=== PATIENT | female | born 2005 | race Caucasian/White ===

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

== ENCOUNTER 2023-06-10 19:08 | Emergency (ER) | payer OTHER ==
[2023-06-10 19:18] VITALS: TEMP 99.9
[2023-06-10 20:01] LABS: Amorphous Sediment,Urine Rare /hpf; Appearance,Urine Cloudy (Clear); Bacteria,Urine Occasional /hpf; Bilirubin,Urine Negative (Negative); Blood,Urine Negative (Negative); Color,Urine Light Yellow; Glucose,Urine (UA) Negative (Negative); Ketones,Urine Negative (Negative); Leukocyte Esterase,Urine Negative (Negative); Mucus,Urine Rare /hpf; Nitrite,Urine Negative (Negative); PH, Urine 7.5 (5.0-8.0); Protein,Urine Negative (Negative); RBC,Urine 2 /hpf (0-5); Specific Gravity,Urine 1.019 (1.001-1.035); Squamous Epithelial Cell,Urine 6 /hpf (0-4); Urobilinogen,Urine <2.0 mg/dL (<2.0); WBC,Urine 4 /hpf (0-5)
--- NOTE | 2023-06-10 20:11 | ED ---
Back Pain HPI - General Chief Complaint: Back Pain/Injury Stated Complaint: back pain Time Seen by Provider: 06/10/23 19:22 Source: patient, RN notes reviewed, old records reviewed Limitations: no limitations - History of Present Illness Initial Comments: This is a to the emergency department for evaluation today. Patient presents today for evaluation regards to severe back pain right-sided flank pain patient has had lumbar fracture in the past but this pain is significantly did she lose her no modifying factors for symptoms. No dysuria no diarrhea no blood in the urine no abdominal pain patient denies chance of MD Complaint: back pain -: hour(s) Similar Symptoms Previously: Yes Place: home Radiation: none Severity: severe Severity scale (1-10): 8 Quality: sharp Consistency: constant Improves With: none Worsens With: none Associated Symptoms: denies other symptoms Treatments Prior to Arrival: other (0) - Related Data Home Medications Medication Instructions Recorded Confirmed Ibuprofen [Advil] 400 mg PO Q8HR PRN 01/14/20 01/14/20 Marlissa-28 1 tab PO HS 01/14/20 01/14/20 Sulfamethox-Tmp 800-160Mg [Bactrim 1 tab PO Q12HR 01/14/20 01/14/20 DS 800-160 mg] Previous Rx's Medication Instructions Recorded Acetaminophen Tab [Tylenol] 650 mg PO Q4H PRN #0 01/15/20 Ciprofloxacin HCl [Cipro] 500 mg PO Q12HR #20 tablet 06/10/23 Doxycycline [Vibramycin] 100 mg PO BID 7 Days #14 capsule 06/12/23 metroNIDAZOLE [Flagyl] 500 mg PO BID 7 Days #14 tab 06/12/23 Allergies Allergy/AdvReac Type Severity Reaction Status Date / Time Penicillins Allergy Intermediate Rash/Hives Verified 06/12/23 12:46 Review of Systems ROS Statement: Those systems with pertinent positive or pertinent negative responses have been documented in the HPI. ROS Other: All systems not noted in ROS Statement are negative. Past Medical History Additional Past Medical History / Comment(s): UTI Aug 2019 History of Any Multi-Drug Resistant Organisms: None Reported Past Surgical History: No Surgical Hx Reported Additional Past Anesthesia/Blood Transfusion Reaction / Comment(s): no surgeries Past Psychological History: No Psychological Hx Reported Smoking Status: Never smoker Past Alcohol Use History: None Reported Past Drug Use History: None Reported - Past Family History Mother Family Medical History: No Reported History Father Family Medical History: No Reported History General Exam Limitations: no limitations General appearance: alert, in no apparent distress Head exam: Present: atraumatic, normocephalic, normal inspection Eye exam: Present: normal appearance, PERRL, EOMI. Absent: scleral icterus, conjunctival injection, periorbital swelling ENT exam: Present: normal exam, mucous membranes moist Neck exam: Present: normal inspection. Absent: tenderness, meningismus, lymphadenopathy Respiratory exam: Present: normal lung sounds bilaterally. Absent: respiratory distress, wheezes, rales, rhonchi, stridor Cardiovascular Exam: Present: regular rate, normal rhythm, normal heart sounds. Absent: systolic murmur, diastolic murmur, rubs, gallop, clicks GI/Abdominal exam: Present: soft, normal bowel sounds. Absent: distended, tenderness, guarding, rebound, rigid Extremities exam: Present: normal inspection, full ROM, normal capillary refill. Absent: tenderness, pedal edema, joint swelling, calf tenderness Back exam: Present: normal inspection Neurological exam: Present: alert, oriented X3, CN II-XII intact Psychiatric exam: Present: normal affect, normal mood Skin exam: Present: warm, dry, intact, normal color. Absent: rash Course Vital Signs 06/10/23 06/10/23 19:15 21:52 Temperature 99.9 F H Pulse Rate 102 H 80 Respiratory 16 17 Rate Blood Pressure 127/57 109/71 O2 Sat by Pulse 100 100 Oximetry - Reevaluation(s) Reevaluation #1: 06/10/23 20:11 Medical record is reviewed Reevaluation #2: Patient symptoms are improved Reevaluation #3: Patient informed results questions answered Reevaluation #4: 06/10/23 20:11 Was pt. sent in by a medical professional or institution (, PA, RIGHT OF WAY MANAGER, urgent care, hospital, or residential...) When possible be specific @ -no Did you speak to anyone other than the patient for history (EMS, parent, family, police, friend...)? What history was obtained from this source @ -no Did you review nursing and triage notes (agree or disagree)? Why? @ -agree Are old charts reviewed (outside hosp., previous admission, EMS record, old EKG, old radiological studies, urgent care reports/EKG's, residential records)? Report findings @ -yes Differential Diagnosis (chest pain, altered mental status, abdominal pain women, abdominal pain men, vaginal bleeding, weakness, fever, dyspnea, syncope, headache, dizziness, GI bleed, back pain, seizure, CVA, palpatations, mental health, musculoskeletal)? @ -prior EKG interpreted by me (3pts min.). @ -no X-rays interpreted by me (1pt min.). @ -no CT interpreted by me (1pt min.). @ -yes U/S interpreted by me (1pt. min.). @ -no What testing was considered but not performed or refused? (CT, X-rays, U/S, labs)? Why? @ -none What meds were considered but not given or refused? Why? @ -none Did you discuss the management of the patient with other professionals (professionals i.e. , PA, RIGHT OF WAY MANAGER, lab, RT, psych nurse, bilingual social worker, feather baler, teacher, protection officer, caseworker protective services)? Give summary @ -no Was smoking cessation discussed for >3mins.? @ -no Was critical care preformed (if so, how long)? @ -no Were there social determinants of health that impacted care today? How? (Homelessness, low income, unemployed, alcoholism, drug addiction, transportation, low edu. Level, literacy, decrease access to med. care, fpc, rehab)? @ -none Was there de-escalation of care discussed even if they declined (Discuss DNR or withdrawal of care, Hospice)? DNR status @ -no What co-morbidities impacted this encounter? (DM, HTN, Smoking, COPD, CAD, Cancer, CVA, ARF, Chemo, Hep., AIDS, mental health diagnosis, sleep apnea, morbid obesity)? @ -none Was patient admitted / discharged? Hospital course, mention meds given and route, prescriptions, significant lab abnormalities, going to OR and other pertinent info. @ - 18 female to the emergency room today with Nonspecific back pain history of back fracture. Patient has normal computed tomography scan here in the ER pain is improved possible urinary tract infection we'll choose antibiotics and can be discharged home Discharge Undiagnosed new problem with uncertain prognosis? @ -no Drug Therapy requiring intensive monitoring for toxicity (Heparin, Nitro, Insulin, Cardizem)? @ -no Were any procedures done? @ -no Diagnosis/symptom? @ -Acute on chronic back pain, UTI cystitis Acute, or Chronic, or Acute on Chronic? @ -Acute Uncomplicated (without systemic symptoms) or Complicated (systemic symptoms)? @ -Complicated Side effects of treatment? @ -no Exacerbation, Progression, or Severe Exacerbation? @ -exacerbation Poses a threat to life or bodily function? How? (Chest pain, [place], MA, pneumonia, PE, COPD, DKA, ARF, appy, cholecystitis, CVA, Diverticulitis, Homicidal, Suicidal, threat to staff... and all critical care pts) @ -no Reevaluation #5: 06/10/23 20:11 Differential Back Pain: Strain, zoster, cauda equina syndrome, epidural abscess, vertebral osteomyelitis, discitis, fracture, subluxation, disc herniation, DJD, spinal stenosis, dissection, AAA, pancreatitis, peptic ulcer disease, pyelonephritis, kidney stone, this is not meant to be an all-inclusive list. Medical Decision Making - Medical Decision Making 18 female to the emergency room today with Nonspecific back pain history of back fracture. Patient has normal computed tomography scan here in the ER pain is improved possible urinary tract infection we'll choose antibiotics and can be discharged home - Lab Data Lab Results 06/10/23 06/10/23 06/10/23 Range/Units 19:26 19:27 19:27 Urine Color Light Yellow Urine Appearance Cloudy H (Clear) Urine pH 7.5 (5.0-8.0) Ur Specific [place] 1.019 (1.001-1.035) Urine Protein Negative (Negative) Urine Glucose (UA) Negative (Negative) Urine Ketones Negative (Negative) Urine Blood Negative (Negative) Urine Nitrite Negative (Negative) Urine Bilirubin Negative (Negative) Urine Urobilinogen <2.0 (<2.0) mg/dL Ur Leukocyte Esterase Negative (Negative) Urine RBC 2 (0-5) /hpf Urine WBC 4 (0-5) /hpf Ur Squamous Epith Cells 6 H (0-4) /hpf Amorphous Sediment Rare H (None) /hpf Urine Bacteria Occasional H (None) /hpf Urine Mucus Rare H (None) /hpf Urine HCG, Qual Not Detected (Not Detectd) Group A Strep (PCR) NOT DETECTED (Not Detectd) - Radiology Data Radiology results: report reviewed (CT head and pelvis is negative for acute disease), image reviewed Disposition Clinical Impression: UTI (urinary tract infection), Acute cystitis, Right low back pain, Mechanical back pain Disposition: HOME SELF-CARE Condition: Good Instructions (If sedation given, give patient instructions): Acute Low Back Pain (ED), Flank Pain (ED), Interstitial Cystitis (ED) Prescriptions: Ciprofloxacin HCl [Cipro] 500 mg PO Q12HR #20 tablet Is patient prescribed a controlled substance at d/c from ED?: No Referrals: None,Stated [Primary Care Provider] - 1-2 days Time of Disposition: 21:30
--- NOTE | 2023-06-10 21:20 | CT ---
EXAMINATION TYPE: CT abdomen pelvis wo con DATE OF EXAM: 06/10/2023 COMPARISON: None HISTORY: 18-year-old female c/o back pain CT DLP: 218 mGycm. Automated exposure control for dose reduction was used. TECHNIQUE: Contiguous axial scanning of the abdomen and pelvis without IV contrast. Coronal and sagit luis reconstructions performed. FINDINGS: The heart is normal size without pericardial effusion. Lung bases clear without pleural effusion. Noncontrast appearance of the liver, gallbladder, adrenal glands, spleen, and pancreas show no gross abnormality. There are a few punctate bilateral nonobstructive renal calculi measuring up to 3 mm. No hydronephros is seen. No dilated small bowel, free fluid, or free air. Limited assessment for abdominal or pelvic lymphaden opathy due to lack of contrast and limited intra-abdominal fat. While the appendix is not discretely visualized, there are no secondary findings of acute appendiciti s in the right lower quadrant. Scattered mild stool. No pericolonic inflammatory change. Moderate circumferential bladder wall thickening. Some nondependent intraluminal bladder air is noted . Uterus anteverted. Ovaries not assessed in detail due to the lack of contrast and difficult delinea tion from adjacent bowel. No obvious abnormal fluid collection the pelvis or pelvic lymphadenopathy. Bones: No osseous destructive process. IMPRESSION: 1. Moderate circumferential bladder wall thickening. Correlate for cystitis. In addition, there are a few foci of air within the lumen of the bladder which is abnormal. Correlate for any recent instrum entation. The air could also reflect underlying infection. 2. Punctate bilateral renal calculi measuring up to 3 mm. No hydronephrosis seen.
[2023-06-10] MEDS ORDERED: CIPROFLOXACIN HCL 500 MG TAB PO STA (21:34)
[2023-06-10 21:58] VITALS: BP 109/71; PULSE 80; RESP 17
== END 2023-06-10 21:55 | disposition home or self-care (01) ==
LOC: EC 19:08
DX: N30.00 Acute cystitis without hematuria (principal); Z88.0 Allergy status to penicillin
CPT/HCPCS: 74176; 81001; 81025; 87651; 99284

== ENCOUNTER 2023-06-12 12:33 | Emergency (ER) | payer OTHER ==
--- NOTE | 2023-06-12 14:34 | ED ---
Female Urogenital HPI - General Chief complaint: Urogenital Stated complaint: Back Pain, Recheck Time Seen by Provider: 06/12/23 14:18 Source: patient, RN notes reviewed Mode of arrival: ambulatory Limitations: no limitations - History of Present Illness Initial comments: This is a 18-year-old female who presents to the emergency department for right lower back pain, vaginal discharge and right sided pelvic pain. Patient was evaluated here 2 days ago for right-sided back pain and was concerned that she may have reinjured her back. States that she was told that her bladder was irregular, and she was started on Cipro. She's been taking this as prescribed, but states that she is now having bloody/orange-appearing vaginal discharge. This has somewhat of a foul odor to it. She does note some itching and mild burning with urination. States that this feels different than a yeast infection. Denies any history of similar symptoms in the past. Denies any concern for STDs. She is also having pain in the right lower back, and states that it feels like her kidney or bladder is "spasming". Denies any fevers, chills, sore throat, cough, dyspnea, chest pain, palpitations, vomiting, diarrhea, or headaches. MD Complaint: vaginal discharge - Related Data Home Medications Medication Instructions Recorded Confirmed Ibuprofen [Advil] 400 mg PO Q8HR PRN 01/14/20 01/14/20 [id number] 1 tab PO HS 01/14/20 01/14/20 Sulfamethox-Tmp 800-160Mg [Bactrim 1 tab PO Q12HR 01/14/20 01/14/20 DS 800-160 mg] Previous Rx's Medication Instructions Recorded Acetaminophen Tab [Tylenol] 650 mg PO Q4H PRN #0 01/15/20 Ciprofloxacin HCl [Cipro] 500 mg PO Q12HR #20 tablet 06/10/23 Doxycycline [Vibramycin] 100 mg PO BID 7 Days #14 capsule 06/12/23 metroNIDAZOLE [Flagyl] 500 mg PO BID 7 Days #14 tab 06/12/23 Allergies Allergy/AdvReac Type Severity Reaction Status Date / Time Penicillins Allergy Intermediate Rash/Hives Verified 06/12/23 12:46 Review of Systems ROS Statement: Those systems with pertinent positive or pertinent negative responses have been documented in the HPI. ROS Other: All systems not noted in ROS Statement are negative. Past Medical History Additional Past Medical History / Comment(s): UTI Aug 2019 History of Any Multi-Drug Resistant Organisms: None Reported Past Surgical History: No Surgical Hx Reported Additional Past Anesthesia/Blood Transfusion Reaction / Comment(s): no surgeries Past Psychological History: No Psychological Hx Reported Smoking Status: Never smoker Past Alcohol Use History: None Reported Past Drug Use History: None Reported - Past Family History Mother Family Medical History: No Reported History Father Family Medical History: No Reported History General Exam Limitations: no limitations General appearance: alert, in no apparent distress Head exam: Present: atraumatic, normocephalic, normal inspection Respiratory exam: Present: normal lung sounds bilaterally. Absent: respiratory distress, wheezes, rales, rhonchi, stridor Cardiovascular Exam: Present: regular rate, normal rhythm, normal heart sounds. Absent: systolic murmur, diastolic murmur, rubs, gallop, clicks GI/Abdominal exam: Present: soft, normal bowel sounds. Absent: distended, tenderness, guarding, rebound, rigid Back exam: Present: CVA tenderness (R). Absent: CVA tenderness (L) Neurological exam: Present: alert, oriented X3, CN II-XII intact Psychiatric exam: Present: normal affect, normal mood Skin exam: Present: warm, dry, intact, normal color. Absent: rash Course Vital Signs 06/12/23 06/12/23 06/12/23 12:43 15:06 16:42 Temperature 98.1 F 98.3 F 98.0 F Pulse Rate 62 63 61 Respiratory 16 17 16 Rate Blood Pressure 125/90 111/69 119/72 O2 Sat by Pulse 100 100 100 Oximetry Medical Decision Making - Medical Decision Making This is a 18-year-old female who presents to the emergency department for right lower back pain and vaginal discharge. Was pt. sent in by a medical professional or institution? @ -No Did you speak to anyone other than the patient for history? @ -No Did you review nursing and triage notes? @ -Yes, and I agree, it is accurate with regards to the patient's symptoms. Were old charts reviewed? @ -Yes, computed tomography scan of the abdomen and pelvis from 06/10/23. This demonstrated moderate circumferential bladder wall thickening and nephrolithiasis without evidence of ureteral calculus or hydronephrosis. Differential Diagnosis? @ -Differential Back Pain: Strain, zoster, cauda equina syndrome, epidural abscess, vertebral osteomyelitis, discitis, fracture, subluxation, disc herniation, DJD, spinal stenosis, dissection, AAA, pancreatitis, peptic ulcer disease, pyelonephritis, kidney stone, this is not meant to be an all-inclusive list. EKG interpreted by me (3pts min.)? @ -Not obtained X-rays interpreted by me (1pt min.)? @ -Not obtained CT interpreted by me (1pt min.)? @ -Not obtained U/S interpreted by me (1pt. min.)? @ -Not interpreted by me What testing was considered but not performed? (CT, X-rays, U/S, labs)? Why? @ -None What meds were considered but not given? Why? @ -None Did you discuss the management of the patient with other professionals? @ -No Did you reconcile home meds? @ -No Was smoking cessation discussed for >3mins.? @ -No Was critical care preformed (if so, how long)? @ -No Were there social determinants of health that impacted care today? How? (Homelessness, low income, unemployed, alcoholism, drug addiction, transportation, low edu. Level, literacy, decrease access to med. care, fci, rehab)? @ -No Was there de-escalation of care discussed even if they declined? (Discuss DNR or withdrawal of care, Hospice)? @ -No What co-morbidities impacted this encounter? (DM, HTN, Smoking, COPD, CAD, Cancer, CVA, Hep., AIDS, mental health diagnosis, sleep apnea, morbid obesity)? @ -None Was patient admitted / discharged? @ -Discharged. Lab work obtained and found to be nonactionable. Urinalysis is contaminated but otherwise not highly suggestive of infection. Pelvic ultrasound and ultrasound of the kidneys, ureters, and bladder obtained. This revealed various incidental findings, including small ovarian follicles and nephrolithiasis. However, there was no evidence of any acute process to account for the patient's symptoms. Given the description of the vaginal discharge with foul odor, and described symptoms, there is the possibility of bacterial vaginosis or other pelvic infection. We subsequently provided prescriptions for doxycycline and metronidazole. She is instructed to stop taking the ciprofloxacin and begin these new medications. She was also given information for follow-up with MOLECULAR BIOLOGIST for further evaluation. Undiagnosed new problem with uncertain prognosis? @ -None Drug Therapy requiring intensive monitoring for toxicity (Heparin, Nitro, Insulin, Cardizem)? @ -None Were any procedures done? @ -None Diagnosis/symptom? @ -Right lower back pain, vaginal discharge Acute, or Chronic, or Acute on Chronic? @ -Acute Uncomplicated (without systemic symptoms) or Complicated (systemic symptoms)? @ -Uncomplicated Side effects of treatment? @ -None Exacerbation, Progression, or Severe Exacerbation] @ -Not applicable Poses a threat to life or bodily function? @ -No Return precautions reviewed in depth, the patient is instructed to return to the emergency department with any new, worsening, or concerning symptoms. Patient verbalized understanding. This case was discussed in detail with the attending ED physician, Dr. Schultz. Presentation, findings, and treatment plan discussed in detail as well. - Lab Data Result diagrams: 06/12/23 14:51 06/12/23 14:51 Lab Results 06/12/23 06/12/23 06/12/23 Range/Units 14:00 14:00 14:51 WBC 3.6 L (4.0-11.0) k/uL RBC 4.57 (3.80-5.40) m/uL Hgb 14.2 (11.4-16.0) gm/dL Hct 42.1 (34.0-46.0) % MCV 92.3 (80.0-100.0) fL MCH 31.1 (25.0-35.0) pg MCHC 33.7 (31.0-37.0) g/dL RDW 12.3 (11.5-15.5) % Plt Count 155 (150-450) k/uL MPV 9.4 Neutrophils % 36 % Lymphocytes % 49 % Monocytes % 8 % Eosinophils % 1 % Basophils % 1 % Neutrophils # 1.3 (1.3-7.7) k/uL Lymphocytes # 1.8 (1.0-4.8) k/uL Monocytes # 0.3 (0-1.0) k/uL Eosinophils # 0.1 (0-0.7) k/uL Basophils # 0.0 (0-0.2) k/uL Sodium (137-145) mmol/L Potassium (3.5-5.1) mmol/L Chloride (98-107) mmol/L Carbon Dioxide (22-30) mmol/L Anion Gap mmol/L BUN (7-17) mg/dL Creatinine (0.52-1.04) mg/dL Est GFR (CKD-EPI)AfAm (>60 ml/min/1.73 sqM) Est GFR (CKD-EPI)NonAf (>60 ml/min/1.73 sqM) Glucose (74-99) mg/dL Calcium (8.4-10.2) mg/dL Total Bilirubin (0.2-1.3) mg/dL AST (14-36) U/L ALT (4-34) U/L Alkaline Phosphatase (38-126) U/L C-Reactive Protein (<1.0) mg/dL Total Protein (6.3-8.2) g/dL Albumin (3.5-5.0) g/dL Urine Color Yellow Urine Appearance Cloudy H (Clear) Urine pH 5.5 (5.0-8.0) Ur Specific [place] 1.030 (1.001-1.035) Urine Protein Trace H (Negative) Urine Glucose (UA) Negative (Negative) Urine Ketones Negative (Negative) Urine Blood Trace H (Negative) Urine Nitrite Negative (Negative) Urine Bilirubin Negative (Negative) Urine Urobilinogen <2.0 (<2.0) mg/dL Ur Leukocyte Esterase Negative (Negative) Urine RBC 1 (0-5) /hpf Urine WBC 1 (0-5) /hpf Ur Squamous Epith Cells 16 H (0-4) /hpf Urine Bacteria Rare H (None) /hpf Urine Mucus Occasional H (None) /hpf Urine HCG, Qual Not Detected (Not Detectd) C.trachomatis RNA Chlamydia/GC DNA Source N.gonorrhoeae RNA 06/12/23 06/12/23 Range/Units 14:51 14:51 WBC (4.0-11.0) k/uL RBC (3.80-5.40) m/uL Hgb (11.4-16.0) gm/dL Hct (34.0-46.0) % MCV (80.0-100.0) fL MCH (25.0-35.0) pg MCHC (31.0-37.0) g/dL RDW (11.5-15.5) % Plt Count (150-450) k/uL MPV Neutrophils % % Lymphocytes % % Monocytes % % Eosinophils % % Basophils % % Neutrophils # (1.3-7.7) k/uL Lymphocytes # (1.0-4.8) k/uL Monocytes # (0-1.0) k/uL Eosinophils # (0-0.7) k/uL Basophils # (0-0.2) k/uL Sodium 139 (137-145) mmol/L Potassium 4.8 (3.5-5.1) mmol/L Chloride 104 (98-107) mmol/L Carbon Dioxide 23 (22-30) mmol/L Anion Gap 12 mmol/L BUN 17 (7-17) mg/dL Creatinine 0.58 (0.52-1.04) mg/dL Est GFR (CKD-EPI)AfAm >90 (>60 ml/min/1.73 sqM) Est GFR (CKD-EPI)NonAf >90 (>60 ml/min/1.73 sqM) Glucose 86 (74-99) mg/dL Calcium 9.4 (8.4-10.2) mg/dL Total Bilirubin 0.5 (0.2-1.3) mg/dL AST 27 (14-36) U/L ALT 10 (4-34) U/L Alkaline Phosphatase 46 (38-126) U/L C-Reactive Protein 0.9 (<1.0) mg/dL Total Protein 7.9 (6.3-8.2) g/dL Albumin 4.7 (3.5-5.0) g/dL Urine Color Urine Appearance (Clear) Urine pH (5.0-8.0) Ur Specific [place] (1.001-1.035) Urine Protein (Negative) Urine Glucose (UA) (Negative) Urine Ketones (Negative) Urine Blood (Negative) Urine Nitrite (Negative) Urine Bilirubin (Negative) Urine Urobilinogen (<2.0) mg/dL Ur Leukocyte Esterase (Negative) Urine RBC (0-5) /hpf Urine WBC (0-5) /hpf Ur Squamous Epith Cells (0-4) /hpf Urine Bacteria (None) /hpf Urine Mucus (None) /hpf Urine HCG, Qual (Not Detectd) C.trachomatis RNA Not detected Chlamydia/GC DNA Source See Below N.gonorrhoeae RNA Not detected - Radiology Data Radiology results: report reviewed, image reviewed Disposition Clinical Impression: Right low back pain, Vaginal discharge Disposition: HOME SELF-CARE Instructions (If sedation given, give patient instructions): Vaginal Discharge (ED) Additional Instructions: Return to the emergency department with any new, worsening, or concerning symptoms. Stop taking the ciprofloxacin previously prescribed. Take the new antibiotics as prescribed for 7 days. Contact the MOLECULAR BIOLOGIST as listed below for a follow-up appointment and reevaluation of ongoing symptoms. Prescriptions: metroNIDAZOLE [Flagyl] 500 mg PO BID 7 Days #14 tab Doxycycline [Vibramycin] 100 mg PO BID 7 Days #14 capsule Is patient prescribed a controlled substance at d/c from ED?: No Referrals: None,Stated [Primary Care Provider] - 1-2 days Grace Wall DO [Doctor of Osteopathic Medicine] - 1-2 days Forms: Area PCPs
[2023-06-12 14:55] LABS: Appearance,Urine Cloudy (Clear); Bacteria,Urine Rare /hpf; Bilirubin,Urine Negative (Negative); Blood,Urine Trace (Negative); Color,Urine Yellow; Glucose,Urine (UA) Negative (Negative); Ketones,Urine Negative (Negative); Leukocyte Esterase,Urine Negative (Negative); Mucus,Urine Occasional /hpf; Nitrite,Urine Negative (Negative); PH, Urine 5.5 (5.0-8.0); Protein,Urine Trace (Negative); RBC,Urine 1 /hpf (0-5); Squamous Epithelial Cell,Urine 16 /hpf (0-4); Urobilinogen,Urine <2.0 mg/dL (<2.0); WBC,Urine 1 /hpf (0-5)
[2023-06-12 15:25] LABS: Basophils % (A) 1 %; Eosinophils # (A) 0.1 k/uL (0-0.7); Eosinophils % (A) 1 %; HCT 42.1 % (34.0-46.0); HGB 14.2 gm/dL (11.4-16.0); Lymphocytes # (A) 1.8 k/uL (1.0-4.8); Lymphocytes % (A) 49 %; MCH 31.1 pg (25.0-35.0); MCHC 33.7 g/dL (31.0-37.0); MCV 92.3 fL (80.0-100.0); Mean Platelet Volume 9.4; Monocytes # (A) 0.3 k/uL (0-1.0); Monocytes % (A) 8 %; Neutrophils # (A) 1.3 k/uL (1.3-7.7); Neutrophils % (A) 36 %; Platelet Count 155 k/uL (150-450); RBC 4.57 m/uL (3.80-5.40); RDW 12.3 % (11.5-15.5); WBC 3.6 k/uL (4.0-11.0)
[2023-06-12 15:53] LABS: ALT 10 U/L (4-34); AST 27 U/L (14-36); African American GFR (CKD) >90 (>60 ml/min/1.73 sqM); Albumin 4.7 g/dL (3.5-5.0); Alkaline Phosphatase 46 U/L (38-126); Anion Gap 12 mmol/L; Blood Urea Nitrogen 17 mg/dL (7-17); C Reactive Protein 0.9 mg/dL (<1.0); Calcium 9.4 mg/dL (8.4-10.2); Carbon Dioxide 23 mmol/L (22-30); Chloride 104 mmol/L (98-107); Glucose 86 mg/dL (74-99); Non-African American GFR(CKD) >90 (>60 ml/min/1.73 sqM); Potassium 4.8 mmol/L (3.5-5.1); Sodium 139 mmol/L (137-145); Total Bilirubin 0.5 mg/dL (0.2-1.3); Total Protein 7.9 g/dL (6.3-8.2)
--- NOTE | 2023-06-12 16:18 | US ---
EXAMINATION TYPE: US kidneys/renal and bladder DATE OF EXAM: 06/12/2023 COMPARISON: NONE CLINICAL INDICATION: Female, 18 years old with history of Right sided back pain; Back pain EXAM MEASUREMENTS: Right Kidney: 10.2 x 3.1 x 3.9 cm Left Kidney: 9.8 x 3.9 x 4.1 cm Right Kidney: Echogenic area lower pole .6 x .5 cm. Left Kidney: Echogenic area lower pole 3 mm. Bladder: Anechoic Bilateral Jets seen: No There is no evidence for hydronephrosis at this point in time. Nonobstructing calculi lower poles of each kidney. No masses are identified. The urinary bladder is anechoic. Bilateral ureteral jets are seen. IMPRESSION: Nonobstructing nephrolithiasis.
--- NOTE | 2023-06-12 16:19 | US ---
EXAMINATION TYPE: US transvaginal DATE OF EXAM: 06/12/2023 COMPARISON: NONE CLINICAL INDICATION: Female, 18 years old with history of Right sided pelvic pain; pain TECHNIQUE: Transvaginal (TV EXAM MEASUREMENTS: Uterus: 6.1 x 3.2 x 4.3 cm Endometrial Stripe: .5 cm Right Ovary: 2.2 x 2.6 x 2.2 cm 1. Uterus: Anteverted wnl 2. Endometrium: wnl 3. Right Ovary: Follicles seen. 4. Left Ovary: Obscured by overlying bowel gas Spectral, color and waveform doppler imaging shows good arterial and venous flow within the right o vary; there is no evidence for right ovarian torsion. 5. Bilateral Adnexa: wnl 6. Posterior cul-de-sac: wnl IMPRESSION: Small ovarian follicles noted.
[2023-06-12 16:48] VITALS: BP 119/72; PULSE 61; RESP 16; TEMP 98
[2023-06-13 14:17] LABS: Chlamydia trachomatis rRNA Not detected; Neisseria gonorrhoeae rRNA Not detected
== END 2023-06-12 16:43 | disposition home or self-care (01) ==
LOC: EC 12:33
DX: N89.8 Other specified noninflammatory disorders of vagina (principal); N20.0 Calculus of kidney; Z88.0 Allergy status to penicillin
CPT/HCPCS: 36415; 76770; 76830; 80053; 81001; 81025; 85025; 86140; 87086; 87491; 87591; 93975; 93976; 99284

== ENCOUNTER → 2023-11-30 | Outpatient (CLI) | payer OTHER ==
[2023-11-30 17:09] LABS: Basophils # (A) 0.06 X 10*3/uL (0.00-0.10); Eosinophils # (A) 0.15 X 10*3/uL (0.04-0.35); Eosinophils % (A) 2.6 %; HCT 42.7 % (37.2-46.3); HGB 14.2 g/dL (12.0-15.0); Lymphocytes # (A) 2.57 X 10*3/uL (0.90-5.00); Lymphocytes % (A) 44.5 %; MCH 30.6 pg (27.0-32.0); MCHC 33.3 g/dL (32.0-37.0); Mean Platelet Volume 11.6 FL (9.5-12.2); Monocytes # (A) 0.34 X 10*3/uL (0.20-1.00); Monocytes % (A) 5.9 %; NRBC Per 100 WBC 0 X 10*3/uL (0.00-0.01); Neutrophils # (A) 2.65 X 10*3/uL (1.80-7.70); Neutrophils % (A) 45.8 %; Platelet Count 229 X 10*3/uL (140-440); RBC 4.64 X 10*6/uL (4.10-5.20); RDW 12.5 % (11.5-14.5); WBC 5.78 X 10*3/uL (4.50-10.00)
[2023-11-30 17:37] LABS: ALT 6 U/L (8-44); AST 19 U/L (13-35); Albumin 4.6 g/dL (3.8-4.9); Alkaline Phosphatase 51 U/L (41-126); BUN/Creat Ratio 17.89 Ratio (12.00-20.00); Blood Urea Nitrogen 16.1 mg/dL (9.0-27.0); Carbon Dioxide 25.7 mmol/L (21.6-31.8); Chloride 106 mmol/L (96-109); Globulin 2.7 g/dL (1.6-3.3); Glucose 79 mg/dL (70-110); Sodium 143 mmol/L (135-145); T4, Free (Free Thyroxine) 1.52 ng/dL (0.83-1.43); Total Bilirubin 0.4 mg/dL (0.3-1.2); Total Protein 7.3 g/dL (6.2-8.2)
[2023-11-30 17:38] LABS: Thyroid Peroxidase Antibodies 20.3 U/mL (0.0-33.0)
[2023-11-30 17:55] LABS: C Reactive Protein, High Sens <0.150 mg/L (0.000-3.000)
== END | disposition home or self-care (01) ==
LOC: LABWHC1 13:42
PROVIDERS: ATTEND Pediatrics Adolescent Medicine
DX: R63.4 Abnormal weight loss (principal)
CPT/HCPCS: 36415; 80053; 83516; 84439; 84443; 84445; 85025; 86141; 86376

== ENCOUNTER → 2024-03-26 | Outpatient (CLI) | payer OTHER ==
--- NOTE | 2024-03-26 15:06 | US ---
EXAMINATION TYPE: US pelvis complete transvag DATE OF EXAM: 03/26/2024 COMPARISON: US & CT CLINICAL INDICATION: Female, 18 years old with history of N94.10 UNSPECIFIED DYSPAREUNIA; Pt states d yspareunia TECHNIQUE: Transvaginal (TV) and Transabdominal (TA) . Transabdominal sonographic images of the pel vis were acquired. Transvaginal sonographic images were medically necessary to better assess the fol lowing anatomy: Endometrium Date of LMP: 7 weeks ago, pt states 3 weeks late for LMP EXAM MEASUREMENTS: Uterus: 8.8 x 2.8 x 4.3 cm Endometrial Stripe: 0.8 cm Right Ovary: 3.0 x 1.8 x 2.4 cm Left Ovary: 3.6 x 2.8 x 2.4 cm 1. Uterus: Anteverted wnl 2. Endometrium: wnl 3. Right Ovary: wnl 4. Left Ovary: Small Cyst= 2.0 x 1.5 x 1.3 cm 5. Bilateral Adnexa: wnl 6. Posterior cul-de-sac: wnl IMPRESSION: Small left ovarian cyst is likely functional in nature. This can be confirmed with follow-up study in 6 weeks.
== END | disposition home or self-care (01) ==
LOC: RADUSWWP 13:59
PROVIDERS: ATTEND Obstetrics & Gynecology
DX: N83.202 Unspecified ovarian cyst, left side (principal); N94.10 Unspecified dyspareunia
CPT/HCPCS: 76830; 76856

== ENCOUNTER 2024-05-14 20:14 | Emergency (ER) | payer OTHER ==
[2024-05-14 20:23] VITALS: RESP 18
--- NOTE | 2024-05-14 20:46 | ED ---
Chest Pain HPI - General Source: patient, RN notes reviewed Mode of arrival: ambulatory Limitations: no limitations <Calista Holman - Last Filed: 05/14/24 20:45> <Wilma Villatoro - Last Filed: 05/15/24 13:00> - General Chief Complaint: Chest Pain Stated Complaint: Chest Pain,Sob Time Seen by Provider: 05/14/24 20:30 - History of Present Illness Initial Comments: Quick [id number] female with a past medical history of asthma presents emergency department chief complaint of chest pain that started this morning. States that this pain is constant sharp pain is rated as an 8 out of 10. States that she has been experiencing shortness of breath and has been using her rescue inhaler more frequently today. Denies fevers, chills, nausea, vomiting, cough, rhinorrhea. (Calista Holman) 18-year-old female presents with chest pain. States that it started earlier today. Described as a sharp shooting substernal chest pressure without radiation. She took some Tylenol at home without any improvement in her symptoms. She does have a history of asthma. States that she has been having s ome shortness of breath and she used her rescue inhaler today which she normally does not need to. The inhaler did not help. She denies fevers, chills, cough, nausea. No injuries reported. No calf pain or swelling. No history of DVT or PE. No cardiac history. No other alleviating, precipitating or modifying factors (Wilma Villatoro) - Related Data Home Medications Medication Instructions Recorded Confirmed Ibuprofen [Advil] 400 mg PO Q8HR PRN 01/14/20 01/14/20 [id number] 1 tab PO HS 01/14/20 01/14/20 Sulfamethox-Tmp 800-160Mg [Bactrim 1 tab PO Q12HR 01/14/20 01/14/20 DS 800-160 mg] Previous Rx's Medication Instructions Recorded Acetaminophen Tab [Tylenol] 650 mg PO Q4H PRN #0 01/15/20 Ciprofloxacin HCl [Cipro] 500 mg PO Q12HR #20 tablet 06/10/23 Doxycycline [Vibramycin] 100 mg PO BID 7 Days #14 capsule 06/12/23 metroNIDAZOLE [Flagyl] 500 mg PO BID 7 Days #14 tab 06/12/23 Allergies Allergy/AdvReac Type Severity Reaction Status Date / Time Penicillins Allergy Intermediate Rash/Hives Verified 05/14/24 20:24 Review of Systems ROS Other: All systems not noted in ROS Statement are negative. <Calista Holman - Last Filed: 05/14/24 20:45> ROS Other: All systems not noted in ROS Statement are negative. <Wilma Villatoro Micah - Last Filed: 05/15/24 13:00> ROS Statement: Those systems with pertinent positive or pertinent negative responses have been documented in the HPI. Past Medical History Past Medical History: Asthma Additional Past Medical History / Comment(s): UTI Aug 2019 History of Any Multi-Drug Resistant Organisms: None Reported Past Surgical History: No Surgical Hx Reported Additional Past Anesthesia/Blood Transfusion Reaction / Comment(s): no surgeries Past Psychological History: No Psychological Hx Reported Smoking Status: Never smoker Past Alcohol Use History: None Reported Past Drug Use History: None Reported - Past Family History Mother Family Medical History: No Reported History Father Family Medical History: No Reported History <RiverCalista - Last Filed: 05/14/24 20:45> General Exam Limitations: no limitations <Calista Holman - Last Filed: 05/14/24 20:45> General appearance: alert, in no apparent distress Head exam: Present: atraumatic, normocephalic, normal inspection Eye exam: Present: normal appearance, PERRL, EOMI. Absent: scleral icterus, conjunctival injection, periorbital swelling ENT exam: Present: normal exam, mucous membranes moist Neck exam: Present: normal inspection. Absent: tenderness, meningismus, lymphadenopathy Respiratory exam: Present: normal lung sounds bilaterally. Absent: respiratory distress, wheezes, rales, rhonchi, stridor Cardiovascular Exam: Present: regular rate, normal rhythm, normal heart sounds. Absent: systolic murmur, diastolic murmur, rubs, gallop, clicks GI/Abdominal exam: Present: soft, normal bowel sounds. Absent: distended, tenderness, guarding, rebound, rigid Extremities exam: Present: normal inspection, full ROM, normal capillary refill. Absent: tenderness, pedal edema, joint swelling, calf tenderness Back exam: Present: normal inspection Neurological exam: Present: alert, oriented X3, CN II-XII intact Psychiatric exam: Present: normal affect, normal mood Skin exam: Present: warm, dry, intact, normal color. Absent: rash <Wilma Villatoro - Last Filed: 05/15/24 13:00> - General Exam Comments Initial Comments: Visual Physical Exam Vital signs reviewed General: Well-appearing, nontoxic, no acute distress. Head: Normocephalic, atraumatic Eyes: PERRLA, EOMI ENT: Airway patent Chest: Nonlabored breathing Skin: No visual rash, normal skin tone Neuro: Alert and oriented 3 Musculoskeletal: No gross abnormalities (aClista Holman) Course Vital Signs 05/14/24 05/14/24 05/14/24 20:20 21:47 23:04 Temperature 98.1 F 98.2 F Pulse Rate 91 79 Respiratory 18 18 18 Rate Blood Pressure 129/73 123/74 O2 Sat by Pulse 95 96 Oximetry Chest Pain MDM <Calista Holman - Last Filed: 05/14/24 20:45> <Wilma Villatoro - Last Filed: 05/15/24 13:00> - MDM I completed the quick note portion of this chart signed Calista Holman PA-C (Calista Holman) Was pt. sent in by a medical professional or institution ([facility], ULTRASOUND TECHNICIAN, urgent care, hospital, or long-term...) When possible be specific @ -No Did you speak to anyone other than the patient for history (EMS, parent, family, police, friend...)? What history was obtained from this source @ -No Did you review nursing and triage notes (agree or disagree)? Why? @ -I reviewed and agree with nursing and triage notes Were old charts reviewed (outside hosp., previous admission, EMS record, old EKG, old radiological studies, urgent care reports/EKG's, long-term records)? Report findings @ -No old charts were reviewed Differential Diagnosis (chest pain, altered mental status, abdominal pain women, abdominal pain men, vaginal bleeding, weakness, fever, dyspnea, syncope, headache, dizziness, GI bleed, back pain, seizure, CVA, palpatations, mental health, musculoskeletal)? @ -Differential Chest Pain: Stable Angina, Unstable Angina, STEMI, NSTEMI Aortic Dissection, Pneumothorax, Musculoskeletal, Esophageal Spasm GERD, Cholecystitis, Pancreatitis, Zoster, this is not meant to be an all-inclusive list. EKG interpreted by me (3pts min.). @ -Yes and demonstrates sinus rhythm with a rate of 102. Parable 136. QRS 87. QTc of 380. Inverted T wave 2, 3, aVF as well as V3. No acute ST segment elevation X-rays interpreted by me (1pt min.). @ -Yes and demonstrates no acute process CT interpreted by me (1pt min.). @ -None done U/S interpreted by me (1pt. min.). @ -None done What testing was considered but not performed or refused? (CT, X-rays, U/S, labs)? Why? @ -None What meds were considered but not given or refused? Why? @ -Motrin was offered however patient states that she will take this medication at home Did you discuss the management of the patient with other professionals (professionals i.e. , PA, ULTRASOUND TECHNICIAN, lab, RT, psych nurse, social services assistant, chief crew scheduler, teacher, foreign policy officer, manager of case)? Give summary @ -No Was smoking cessation discussed for >3mins.? @ -No Was critical care preformed (if so, how long)? @ -No Were there social determinants of health that impacted care today? How? (Homelessness, low income, unemployed, alcoholism, drug addiction, transportation, low edu. Level, literacy, decrease access to med. care, fdc, rehab)? @ -No Was there de-escalation of care discussed even if they declined (Discuss DNR or withdrawal of care, Hospice)? DNR status @ -No What co-morbidities impacted this encounter? (DM, HTN, Smoking, COPD, CAD, Cancer, CVA, ARF, Chemo, Hep., AIDS, mental health diagnosis, sleep apnea, morbid obesity)? @ -Asthma Was patient admitted / discharged? Hospital course, mention meds given and route, prescriptions, significant lab abnormalities, going to OR and other pertinent info. @ -Upon arrival patient seen and evaluated in room 30. Thorough history and physical exam was performed. IV access had been established. Laboratory studies were conducted. Chest x-ray was performed. Patient does have symptoms of possible costochondritis. No definitive diagnosis from the laboratory studies and chest x-ray. I feel the patient is stable for discharge home at this time. I recommend that she follow-up with her primary care and have further testing to include an echo. She should return to the emergency department for any new or worsening symptoms. Patient agreeable to plan she was discharged home in stable condition Undiagnosed new problem with uncertain prognosis? @ -yes Drug Therapy requiring intensive monitoring for toxicity (Heparin, Nitro, Insulin, Cardizem)? @ -No Were any procedures done? @ -No Diagnosis/symptom? @ -Default Acute, or Chronic, or Acute on Chronic? @ -acute atypical chest pain Uncomplicated (without systemic symptoms) or Complicated (systemic symptoms)? @ -acute Side effects of treatment? @ -No Exacerbation, Progression, or Severe Exacerbation? @ -No Poses a threat to life or bodily function? How? (Chest pain, [place], ID, pneumonia, PE, COPD, DKA, ARF, appy, cholecystitis, CVA, Diverticulitis, Homicidal, Suicidal, threat to staff... and all critical care pts) @ -No (Wilma Villatoro) Disposition <Calista Holman - Last Filed: 05/14/24 20:45> Is patient prescribed a controlled substance at d/c from ED?: No Time of Disposition: 22:45 <Wilma Villatoro - Last Filed: 05/15/24 13:00> Clinical Impression: Chest pain Disposition: HOME SELF-CARE Condition: Stable Instructions (If sedation given, give patient instructions): Chest Pain (ED) Additional Instructions: Please take 2 ibuprofen every 6 hours for pain control. Follow-up with your doctor for an echo and return for any new or worsening symptoms Referrals: Ema Del Castillo MD [Primary Care Provider] - 1-2 days
[2024-05-14 21:39] LABS: Basophils # (A) 0.1 k/uL (0-0.2); Basophils % (A) 1 %; Eosinophils # (A) 0.1 k/uL (0-0.7); Eosinophils % (A) 2 %; HCT 45.6 % (34.0-46.0); HGB 15.4 gm/dL (11.4-16.0); Lymphocytes # (A) 3.1 k/uL (1.0-4.8); Lymphocytes % (A) 49 %; MCH 30.6 pg (25.0-35.0); MCHC 33.7 g/dL (31.0-37.0); MCV 90.8 fL (80.0-100.0); Mean Platelet Volume 9.2; Monocytes # (A) 0.3 k/uL (0-1.0); Monocytes % (A) 5 %; Neutrophils # (A) 2.7 k/uL (1.3-7.7); Neutrophils % (A) 42 %; Platelet Count 210 k/uL (150-450); RBC 5.02 m/uL (3.80-5.40); RDW 12.3 % (11.5-15.5); WBC 6.4 k/uL (4.0-11.0)
[2024-05-14 21:50] LABS: ALT 8 U/L (4-34); AST 23 U/L (14-36); African American GFR (CKD) >90 (>60 ml/min/1.73 sqM); Albumin 5.3 g/dL (3.5-5.0); Alkaline Phosphatase 39 U/L (38-126); Anion Gap 8 mmol/L; Blood Urea Nitrogen 14 mg/dL (7-17); Calcium 10.6 mg/dL (8.4-10.2); Carbon Dioxide 25 mmol/L (22-30); Chloride 109 mmol/L (98-107); Glucose 97 mg/dL (74-99); Non-African American GFR(CKD) >90 (>60 ml/min/1.73 sqM); Potassium 3.9 mmol/L (3.5-5.1); Sodium 142 mmol/L (137-145); Total Bilirubin 0.7 mg/dL (0.2-1.3); Total Protein 8.3 g/dL (6.3-8.2)
[2024-05-14 23:05] VITALS: BP 123/74; PULSE 79; TEMP 98.2
--- NOTE | 2024-05-14 23:05 | XR ---
EXAMINATION TYPE: XR chest 2V DATE OF EXAM: 05/14/2024 9:01 PM CLINICAL INDICATION:Female, 18 years old with history of CP, sob; [facility] COMPARISON: None TECHNIQUE: XR chest 2V. Frontal and lateral views of the chest.. FINDINGS: Lines/Tubes/Devices: No indwelling lines are seen. Heart/mediastinum: Heart size is normal. Mediastinum appears normal. Pulmonary vascularity: Not increased, Lungs/Pleura: There is no evidence of pleural effusion, focal consolidation, or pneumothorax. Musculoskeletal: No acute osseous abnormality demonstrated in the limits of the exam. Trace apex rig ht curvature of the thoracic spine. Other findings: None. IMPRESSION: No acute cardiopulmonary abnormality.
== END 2024-05-14 23:13 | disposition home or self-care (01) ==
LOC: EC 20:14
CPT/HCPCS: 36415; 71046; 80053; 83735; 84484; 85025; 85379; 87636; 93005; 99285